=== PATIENT | male | born 1955 | race Caucasian/White ===

== ENCOUNTER 2016-10-19 21:38 | Emergency (ER) | payer OTHER ==
[~2016-10-19] VITALS: Ht 193 cm; Wt 127.3 kg
[~2016-10-19 21:38] MED LIST: ATOR10TA66 PO; BUPR200T PO; CHOL2000 PO; CITA20TA11 PO; DESO15CR25 TOP; ERGO400T3 PO; GLUC-160 PO; KTC2C15 TP; LOSA25TA21 PO; METF10002 PO; [UNRECOGNIZED DRUG - CODE] PO
[2016-10-19 21:51] VITALS: BP 137/84; PULSE 63; RESP 16; O2SAT 97
--- NOTE | 2016-10-19 22:16 | ED.REPORT ---
HPI-Back Pain 40 and Over Date of Service Oct 19, 2016 ED Provider: Lenny Ramsey DO Pt is a 60 y/o male with a history of hypertension, DM, and arthritis who presents to the ED c/o worsening right lower back pain s/p falling on a wooden deck onset 1700 today. Patient describes pain as "sharp" and is exacerbated with movement. He rates his current pain as a 9/10. He denies numbness/tingling , leg weakness, chest pain, SOB, abdominal pain, nausea, vomiting, fever, or chills. He reports taking 2 Aleve to help with pain. Pt reports having similar symptoms previously 15 years ago following a similar incident on ice. Nursing Notes Stated Complaint: FELL, BACK PAIN Chief Complaint: Back Pain or Injury Nursing Notes Reviewed: Yes Allergies: Coded Allergies: No Known Drug Allergies (Verified Allergy, Unknown, 04/29/14) Scheduled Atorvastatin Calcium (Atorvastatin Calcium) 10 Mg Tablet 10 MG PO DAILY Bupropion ER (Bupropion ER) 200 Mg Tablet.er 300 MG PO BID Cholecalciferol (Vitamin D3) (Vitamin D) 2,000 Unit Capsule 2,000 UNIT PO DAILY Citalopram (Citalopram) 20 Mg Tablet 20 MG PO DAILY Desonide (Desonide Cream) 15 Gm Cream..g. 1 APPLIC TOP BID Ergocalciferol (Vitamin D2) (Vitamin D) 400 Unit Tablet 1 CAP PO DAILY Lcujdfke-Oeuhsaq-Wcne 149-Hyal (Glucosamine-Chondr Complex Tab) 1 Each Tablet 1 EACH PO DAILY Losartan Potassium (Losartan Potassium) 25 Mg Tablet 25 MG PO DAILY Metformin (Metformin) 1,000 Mg Tablet 1,000 MG PO DAILYWM Scheduled PRN Naproxen Sodium (Naproxen Sodium) 220 Mg Tablet 220 MG PO BID PRN PRN For Pain Miscellaneous Medications Ketoconazole (Ketoconazole) 15 Gm Cream..g. 15 GM TP General Time Seen by MD: 22:16 Chief Complaint Back pain Hx Obtained From: Patient Arrived By: Walk-in Sudden in Onset?: Yes Onset Occurred: 1 - 4 hours ago Symptom Duration: Constant Caused by: Fall Location: : Spinal lumbar area Quality: Painful, Sharp Radiation: : Does not radiate Severity: Current: Pain level 9 out of 10 Severity: Maximum: Pain level 9 out of 10 Associated with: Denies: Chest pain, Inability to walk, Numbness both low ext, Weakness both lower ext Pertinent Negative: Pt denies other symptoms Pertinent Negative: Relieved by nothing Recent Healthcare: No recent doctor visit, No recent hospitalization Similar Sx Previous: Yes Risk Factors )( AAA Risk Stratification Abdominal Aortic Aneurysm Risk: Hypertension Risk factors reviewed )( TAD Risk Stratification Hypertension Risk factors reviewed Past Medical History Past Medical History Arthritis Reports: Diabetes mellitus, Hypertension Past Surgical History [place] teeth removal Angiogram Smoking History Current Every Day Smoker Social History Other Social History: Good social support, Local resident Ambulatory Status Independent Review of Systems Constitutional: Denies: Chills, Fever Respiratory: Denies: Shortness of breath Cardiovascular: Denies: Chest pain GI: Denies: Abdominal pain, Nausea, Vomiting Musculoskeletal: Reports: Back pain (Right lower ) Neurologic: Denies: Focal weakness, Numbness Complete sys rev & neg: except as marked. Physical Exam Initial Vital Signs Vital Signs (First) Date Time Temp Pulse Resp B/P Pulse Ox O2 Delivery O2 Flow Rate FiO2 10/19/16 21:51 36.8 63 16 137/84 97 Room Air Initial VS: Reviewed Head / Eyes: Atraumatic, Normocephalic Neck: Supple, Full range of motion Extremities: Vascular intact, Neuro intact, No swelling, No tenderness Skin: Warm, Dry, No cyanosis Psychiatric: Mood/affect normal, Behavior normal, Normal thought content General/Constitutional: Awake, Alert Respiratory / Chest: Atraumatic, Breath sounds NL, Breath sounds = bilat, No respiratory distress Cardiovascular: Heart rate NL, Regular rhythm, Heart sounds NL Abdomen: Atraumatic, Soft, Non-tender Back: Atraumatic, No CVA tenderness L3-L5 midline lumbar tenderness Right-sided SI joint pain Unable to perform straight leg test secondary to pain Neurologic: Oriented X3, Speech NL Interpretation & Diagnostics X-Ray Interpretation Xray Interpretation: Lumbar Spine X-Ray: Impression: No fracture Moderate degenerative changes Mild lumbar scoliosis Interpretation / Wet Read by: Wet read ED physician Re-Eval/Medical Decision Med Decision/Clinical Course 60-year-old male presents after acute injury/fall this evening onto his back. He has no red flag symptoms however given the trauma I elected to do a lumbar series which returned negative for acute findings. His pain was relieved with Vicodin and he was sent home with a prescription for more of same. He plans to follow up with his PCP next week and he was given return precautions. Source of Hx: Old records Re-Evaluation/Progress : Time of Eval: 12:24 Patient Status: Condition improved Re-Evaluation/Progress Note: Pt rechecked. Discussed plan for discharge. Patient understands and agrees with plan. F/U instructions and RTER warnings given. All questions addressed at this time. Counseled Regarding: Diagnosis, Lab results, Need for follow-up, When/why to return to ED Discharge & Departure Impression: Primary Impression: Low back pain Chronicity: acute Back pain laterality: right Sciatica presence: without sciatica Qualified Code: M54.5 - Low back pain Additional Impression: Lower back injury Encounter type: initial encounter Qualified Code: S39.92XA - Unspecified injury of lower back, initial encounter Disposition: Home Discharge Condition All VS Reviewed: Yes Condition: Stable Patient Instructions: Acute Low Back Pain (ED) Additional Instructions: Thank you for trusting us with your medical care. Your lumbar x-ray shows no fracture or acute changes, however you do have some degenerative changes consistent with your age Your pain improved with Vicodin here. Please continue to use naproxen 2 tablets twice daily for pain and use Vicodin as needed for breakthrough pain. Follow up with your primary care physician next week as scheduled for a recheck. Return to the ER if you develop new or worsening symptoms. Referrals: OTHER,PHYSICIAN (PCP) (Family) Scribe Attestation Portions of this note were transcribed by Nellie Amador and Alana Braden. I, Dr. Ramsey, personally performed the history, physical exam and medical decision-making; I reviewed and confirmed the accuracy of the information in the transcribed note. Signed by: Tamika Dukes, 10/12/16. copies to: PHYSICIAN Roxy STRONG Gary R DO Oct 19, 2016 22:16 Nellie Amador Oct 19, 2016 23:20 ALANA BRADEN Oct 20, 2016 01:00
[2016-10-19] MEDS ORDERED: HYDROcodone-APAP 10-325 mg PO ONE (23:20)
[2016-10-20] MEDS ORDERED: _HYDROcodone/APAP 5-325 mg Tablet PO PRN (00:30)
[2016-10-20 00:42] VITALS: BP 119/77; PULSE 79; RESP 17; O2SAT 94
--- NOTE | 2016-10-20 07:57 | DRSVH ---
PROCEDURE: X-RAY LUMBAR SPINE, 2 OR 3 VIEW INDICATIONS: fall, low back pain TECHNIQUE: 3 views of the lumbar spine were acquired. COMPARISON: None. FINDINGS: Bones: 5 [id number] vertebrae are present. There is normal bony alignment. No vertebral body c ompression fractures. No suspicious bony lesions. Moderate to severe degenerative changes present i ncluding large anterior syndesmophytes, intervertebral disc space narrowing, endplate sclerosis, and facet sclerosis. Soft tissues: Overlying bowel gas pattern is normal. No suspicious soft tissue calcifications. IMPRESSION: Degenerative change. No acute radiographic findings. If pain persists, and further charac terization is warranted, consider CT or MRI of lumbar spine to evaluate for occult injury. Dictated by: Beatrice Andres M.D. on 10/20/2016 at 7:54 Approved by: Beatrice Andres M.D. on 10/20/2016 at 7:55
== END 2016-10-20 00:34 | disposition home or self-care (01) ==
LOC: SED 21:38
DX: S39.82XA Other specified injuries of lower back, initial encounter (principal); W18.39XA Other fall on same level, initial encounter; Y93.89 Activity, other specified; Y92.89 Other specified places as the place of occurrence of the external cause; Y99.8 Other external cause status; I10 Essential (primary) hypertension; E11.9 Type 2 diabetes mellitus without complications; M19.90 Unspecified osteoarthritis, unspecified site; Z79.84 Long term (current) use of oral hypoglycemic drugs; F17.200 Nicotine dependence, unspecified, uncomplicated